=== PATIENT | female | born 1990 | race Caucasian/White ===

== ENCOUNTER 2016-10-05 05:20 | Day surgery (SDC) | payer OTHER ==
[2016-10-05] VITALS (13 sets, daily range): BP systolic 98–113; BP diastolic 56–73; PULSE 70–80; RESP 16–31; Ht 165.1 cm; Wt 59.2 kg
[~2016-10-05] VITALS: Ht 165.1 cm; Wt 59.2 kg
[2016-10-05] MEDS ORDERED: POLYMYXIN/BACITRACIN 1L IRRIG ONE (06:41)
[2016-10-05] MEDS ORDERED: BUPIVACAINE 0.5% (SDV) 30 ML INJ ONE (06:41)
--- NOTE | 2016-10-05 07:30 | HPN ---
Date/Time of Note Date/Time of Note DATE: 10/05/16 TIME: 07:30 Interval H&P Admission Note Pt. seen H&P reviewed: No system changes SARITA MA DPM Oct 05, 2016 07:30
[2016-10-05] MEDS ORDERED: LIDOCAINE 2% (MDV) 20 ML INJ ONE (07:33)
[2016-10-05] MEDS ORDERED: LIDOCAINE 2% (MDV) 20 ML INJ INJ ONE (07:40)
[2016-10-05] MEDS ORDERED: BUPIVACAINE 0.5% 30 ML VIAL INJ ONE (07:40)
[2016-10-05] MEDS ORDERED: FENTAnyl 50 MCG/ML VIAL ONE (07:40)
[2016-10-05] MEDS ORDERED: MIDAZOLAM 1 MG/ML 2 ML INJ ONE (07:40)
[2016-10-05] MEDS ORDERED: POLYMYXIN/BACITRACIN 1L IRRIG IRR ONE (07:40)
[2016-10-05] MEDS ORDERED: DIPHENHYDRAMINE 50 MG INJ IV PRN (08:30)
[2016-10-05] MEDS ORDERED: HYDROmorphONE (0.2 MG/ML) 10ML SYG IV PRN ×2 (08:30)
[2016-10-05] MEDS ORDERED: FENTAnyl 50 MCG/ML VIAL IV PRN (08:30)
[2016-10-05] MEDS ORDERED: ONDANSETRON 4 MG INJ IV PRN (08:30)
[2016-10-05] MEDS ORDERED: MEPERIDINE 25 MG INJ IV PRN (08:30)
[2016-10-05] MEDS ORDERED: PROPOFOL 20 ML ONE (08:35)
[2016-10-05] MEDS ORDERED: LIDOCAINE 2% (SDV) 5 ML INJ ONE (08:36)
[2016-10-05] MEDS ORDERED: CEFAZOLIN 1 GM INJ ONE (08:36)
--- NOTE | 2016-10-05 17:53 | RADRPT ---
PROCEDURE: XR Right Foot. CLINICAL INDICATION: Right foot pain. Postop. TECHNIQUE: Three views. Frontal, lateral, and oblique. COMPARISON: None. FINDINGS: There is no fracture or dislocation. There is soft tissue swelling overlying the distal metatarsals. Articular surfaces are intact. There is no lytic or blastic lesion. There is no radiopaque foreign body. IMPRESSION: 1. Soft tissue swelling overlying the distal metatarsals. 2. Otherwise normal images of the right foot. RPTAT: QQ .Farshad Lagunas MD, MD Date Time Electronically viewed and signed by .Farshad Lagunas MD, MD on 10/05/2016 17:52 .R/
--- NOTE | 2016-10-05 17:54 | RADRPT ---
PROCEDURE: XR Left Foot. CLINICAL INDICATION: Left foot pain. TECHNIQUE: Three views. Frontal, lateral, and oblique. COMPARISON: None. FINDINGS: There is no fracture or dislocation. There is soft tissue swelling overlying the metatarsals distally. The soft tissues are otherwise no rmal. Articular surfaces are intact. There is no lytic or blastic lesion. There is no radiopaque foreign body. IMPRESSION: 1. Soft tissue swelling overlying the metatarsals distally. 2. Otherwise normal images of the left foot. RPTAT: QQ .Farshad Lagunas MD, MD Date Time Electronically viewed and signed by .Farshad Lagunas MD, MD on 10/05/2016 17:53 .R/
== END 2016-10-05 10:35 | disposition home or self-care (01) ==
LOC: SDS 05:20
PROVIDERS: ATTEND Podiatrist Foot & Ankle Surgery
DX: D16.32 Benign neoplasm of short bones of left lower limb (principal)
CPT/HCPCS: 28124; 73630; 84703; 88304; 88311; J0690; J2250; J3010; Z7512; Z7610; L3260-LT